=== PATIENT | male | born 1975 | race Caucasian/White ===

== ENCOUNTER 2020-06-03 12:00 | Outpatient (RCR) | payer OTHER, BC, SELFPAY | END 2020-06-21 12:46 | disposition other institution (70) | LOC: HO.PT 12:00 | PROVIDERS: PCP Internal Medicine; Visit Provider Orthopaedic Surgery | DX: Z98.890 Other specified postprocedural states (principal) | CPT/HCPCS: 97014; 97110; 97140 ==